=== PATIENT | female | born 1945 | race Caucasian/White ===

== ENCOUNTER 2018-08-14 09:30 | Day surgery (SDC) | payer MEDICARE, OTHER ==
[~2018-08-14 09:30] MED LIST: Buffered Lidocaine 1% SYRIN* 1 ML/SYRINGE INTRADERM ONE; Lactated Ringers 1000 ML Bag* 1,000 ML IV SCH
[2018-08-14] MEDS ORDERED: ceFAZolin 2 GM PREMIX in ORs 2 GM/50 ML BAG IVPB ONE (09:58)
[2018-08-14] MEDS ORDERED: Bupivacaine 0.5% W/EPI SDV* 30 ML VIAL ONE (12:03)
[2018-08-14] MEDS ORDERED: Midazolam* 1 MG/ML 2 ML VIAL (2 MG) ONE (12:03)
[2018-08-14] MEDS ORDERED: fentaNYL* 50 MCG/ML 2 ML VIAL (100 MCG VIAL) ONE (12:03)
[2018-08-14] MEDS ORDERED: Bupivacaine 0.25% SDV PF* 10 ML VIAL INJ ONE (12:26)
[2018-08-14] MEDS ORDERED: Propofol* 10 MG/ML 20 ML BTL ONE (12:28)
[2018-08-14] MEDS ORDERED: Lidocaine 2% PF * 5 ML VIAL ONE (12:28)
[2018-08-14] MEDS ORDERED: Naloxone* 0.4 MG/ML 1 ML VIAL IV PRN (12:39)
[2018-08-14 13:03] VITALS: BP 105/67
== END 2018-08-14 13:35 | disposition home or self-care (01) ==
LOC: OR 09:30
PROVIDERS: ATTEND Plastic Surgery
DX: M65.4 Radial styloid tenosynovitis [de Quervain] (principal); Z87.891 Personal history of nicotine dependence; Z86.718 Personal history of other venous thrombosis and embolism; Z79.82 Long term (current) use of aspirin
CPT/HCPCS: J0690; J2250; J2704; J3010; J3490

== ENCOUNTER 2024-04-02 03:23 | Inpatient (IN) ==
[2024-04-02] MEDS: Ondansetron 4 mg VIAL 2 MG/ML 2 ml VIAL IV ONE ×2 (04:08→05:37)
[2024-04-02] MEDS: Lactated Ringers 1000 ml BAG 1,000 ML IV ONE (04:10)
[2024-04-02 04:28] LABS: ABS Eosinophils 0.1 10^3/uL (0.0-0.5); ABS Lymphocytes 1.8 10^3/uL (1.0-4.8); ABS Monocytes 0.7 10^3/uL (0.0-0.9); ABS Neutrophils 10.7 10^3/uL (1.5-7.6); Eosinophil % 0.7 %; Hematocrit 41.2 % (35-45); Hemoglobin 14.1 g/dL (11.5-14.3); Lymphocyte % 13.5 %; Mean Corpuscular Hemoglobin 32.6 pg (27-33); Mean Corpuscular Hgb Conc 34.2 g/dL (31-36); Mean Corpuscular Volume 95.3 fL (80-97); Mean Platelet Volume 7.2 fL (7.5-11.2); Platelet Count 318 10^3/uL (150-450); Red Blood Count 4.32 10^6/uL (3.63-4.92); Red Cell Distribution Width 13.2 % (12-17); White Blood Count 13.4 10^3/uL (3.8-11.8)
[2024-04-02 04:37] LABS: INR 1.06 (0.85-1.14)
[2024-04-02 05:08] LABS: Albumin 4.1 g/dL (3.2-5.2); Albumin/Globulin Ratio 1.6 (1-3); Calcium 9.5 mg/dL (8.6-10.3); Creatinine, Serum 0.98 mg/dL (0.51-0.95); Globulin 2.5 g/dL (2-4); Magnesium 1.8 mg/dL (1.9-2.7); Potassium 3.6 mmol/L (3.5-5.0); Total Bilirubin 0.5 mg/dL (0.2-1.0); Total Protein 6.6 g/dL (6.4-8.9); eGFR CKD-EPI 59.4 (>60)
[2024-04-02] MEDS: Iodixanol (CONTRAST) 320 MG/ML 100 ML SDV IV ONE (05:39)
[2024-04-02 05:47] LABS: High Sensitivity Troponin 1 Hr 7 pg/mL (<15)
[2024-04-02] MEDS ORDERED: Sulfur Hexaflouride MICROSPHR 25 MG VIAL IV PRN (07:29)
[2024-04-02] MEDS: Magnesium Sulfate 2 gm BAG 2 GM/50 ML BAG IVPB ONE (08:32)
[2024-04-02] MEDS: Potassium Chlor 20 meq TAB.ER PO ONE (10:05)
[2024-04-02 11:18] LABS: HDL Cholesterol 60.9 mg/dL
[2024-04-02] MEDS: KCL 20 MEQ/100 ML IVPREMIX 20 MEQ/100 ML BAG IV SCH (14:02)
[2024-04-02] MEDS: NS 0.9% 1000 ml BAG 1,000 ML IV ONE (15:09)
[2024-04-03 11:21] LABS: ABS Eosinophils 0.1 10^3/uL (0.0-0.5); ABS Lymphocytes 1.6 10^3/uL (1.0-4.8); ABS Nucleated RBC 0.01 10^3/ul; Eosinophil % 0.8 %; Hemoglobin 13.2 g/dL (11.5-14.3); Lymphocyte % 18.5 %; Mean Corpuscular Hemoglobin 31.9 pg (27-33); Mean Corpuscular Hgb Conc 32.1 g/dL (31-36); Mean Corpuscular Volume 99.2 fL (80-97); Nucleated Red Blood Cells % 0.1 %/100WBC (0.0-0.8); Platelet Count 293 10^3/uL (150-450); Red Blood Count 4.14 10^6/uL (3.63-4.92); Red Cell Distribution Width 13.4 % (12-17); White Blood Count 8.6 10^3/uL (3.8-11.8)
[2024-04-03 11:30] LABS: Urine Appearance No Cx Clear (Clear); Urine Bilirubin No Culture Negative (Negative); Urine Blood No Culture Negative (Negative); Urine Color No Culture Light-Yellow; Urine Glucose No Culture Negative (Negative); Urine Ketones No Culture Negative (Negative); Urine Leukocytes No Culture Negative Leu/uL (Negative); Urine Nitrite No Culture Negative (Negative); Urine Protein No Culture Negative (Negative); Urine Specific Gravity No Cx 1.009 (1.002-1.030); Urine Urobilinogen No Cx Negative (Negative); Urine pH No Culture 5.5 (5.0-8.0)
[2024-04-03 11:31] LABS: Ur Squamous Epithelial No Cx Present /HPF (Absent); Urine Bacteria No Culture Absent /HPF (Absent); Urine Red Blood Cell No Cult Trace(0-2/hpf) /HPF (0-Trace); Urine White Blood Cell No Cult Trace(0-5/hpf) /HPF (0-Trace)
[2024-04-03] MEDS: HYDROCHLOROTHIAZIDE PO SCH (12:02)
[2024-04-03] MEDS: LISINOPRIL PO SCH (12:02)
[2024-04-03] MEDS: NS 0.9% 1000 ml BAG 1,000 ML IV SCH (18:32)
[2024-04-04 07:13] LABS: Calcium 8.8 mg/dL (8.6-10.3); Creatinine, Serum 0.74 mg/dL (0.51-0.95); Magnesium 1.8 mg/dL (1.9-2.7); Potassium 3.7 mmol/L (3.5-5.0); eGFR CKD-EPI 83.3 (>60)
[2024-04-04] MEDS: Magnesium Sulfate 2 gm BAG 2 GM/50 ML BAG IVPB ONE (09:09)
[2024-04-04] MEDS: KCL 20 MEQ/100 ML IVPREMIX 20 MEQ/100 ML BAG IV SCH (10:16)
[2024-04-04] MEDS ORDERED: fentaNYL 250 mcg/5 ml 50 MCG/ML 5 ml VIAL (250 MCG) ONE (12:27)
[2024-04-04] MEDS ORDERED: Midazolam 5 mg/5 ml VIAL 1 mg/ml 5 ml VIAL (5 mg) ONE (12:27)
[2024-04-05 05:06] LABS: ABS Basophils 0.1 10^3/uL (0.0-0.1); ABS Eosinophils 0.2 10^3/uL (0.0-0.5); ABS Lymphocytes 1.9 10^3/uL (1.0-4.8); ABS Monocytes 0.8 10^3/uL (0.0-0.9); ABS Neutrophils 5.4 10^3/uL (1.5-7.6); ABS Nucleated RBC 0.01 10^3/ul; Eosinophil % 2.2 %; Hematocrit 36.6 % (35-45); Hemoglobin 12.9 g/dL (11.5-14.3); Lymphocyte % 23.1 %; Mean Corpuscular Hemoglobin 33.1 pg (27-33); Mean Corpuscular Hgb Conc 35.3 g/dL (31-36); Mean Platelet Volume 6.8 fL (7.5-11.2); Nucleated Red Blood Cells % 0.1 %/100WBC (0.0-0.8); Platelet Count 269 10^3/uL (150-450); White Blood Count 8.4 10^3/uL (3.8-11.8)
[2024-04-05 06:04] LABS: Anion Gap 6 mmol/L (2-16); Blood Urea Nitrogen 12 mg/dL (6-24); CO2 Carbon Dioxide 24 mmol/L (22-32); Chloride 108 mmol/L (101-111); Creatinine, Serum 0.62 mg/dL (0.51-0.95); Glucose 94 mg/dL (70-100); Sodium 138 mmol/L (135-145); eGFR CKD-EPI 91.7 (>60)
[2024-04-05] MEDS: NS 0.9% 1000 ml BAG 1,000 ML IV SCH (06:21)
[2024-04-05] MEDS ORDERED: ceFAZolin 2 GM PREMIX 2 GM/50 ML BAG ONE (07:10)
[2024-04-05 07:21] LABS: Potassium Redraw 3.9 mmol/L (3.5-5.0)
[2024-04-05] MEDS ORDERED: fentaNYL 100 mcg/2 ml 50 MCG/ML VIAL ONE (07:56)
[2024-04-05] MEDS ORDERED: Midazolam 5 mg/5 ml VIAL 1 mg/ml 5 ml VIAL (5 mg) ONE ×2 (07:56→09:56)
[2024-04-05] MEDS ORDERED: Lidocaine 1% VIAL 10 MG/ML 30 ML VIAL ONE ×2 (07:56→09:23)
[2024-04-05] MEDS ORDERED: Iohexol 300 (CONTRAST) 10 ML SDV ONE ×2 (07:57→09:21)
[2024-04-05] MEDS: ceFAZolin 2 GM PREMIX 2 GM/50 ML BAG IV ONE (09:45)
[2024-04-06 14:44] VITALS: BP 107/72
== END 2024-04-06 14:30 | disposition home or self-care (01) | DRG 244 ==
LOC: EDHOLD 03:23 → ED 03:23 → EDHOLD 13:19 → MED 21:28 → ICU 04-04 18:41
PROVIDERS: ADMIT Internal Medicine; ATTEND Internal Medicine